=== PATIENT | female | born 1965 | race Caucasian/White ===

== ENCOUNTER 2016-06-18 07:14 | Day surgery (SDC) | payer OTHER ==
[~2016-06-18] VITALS: Ht 167.6 cm; Wt 89.8 kg
[2016-06-18 07:52] VITALS: Ht 167.6 cm; Wt 89.8 kg
[2016-06-18 08:35] VITALS: BP 141/77; PULSE 54; RESP 16
[2016-06-18] MEDS ORDERED: FENTAnyl 50 MCG/ML VIAL ONE (09:34)
[2016-06-18] MEDS ORDERED: MIDAZOLAM 1 MG/ML 2 ML INJ ONE ×2 (09:34)
[2016-06-18 09:56] VITALS: BP 136/71; PULSE 65; RESP 18
--- NOTE | 2016-06-18 11:13 | GILP ---
DATE OF PROCEDURE: 06/18/2016 NAME OF PROCEDURE: Colonoscopy and biopsy. SURGEON: Darron Dave MD PREOPERATIVE DIAGNOSIS: Screening colonoscopy. POSTOPERATIVE DIAGNOSES: 1. Colonoscopy all the way to the cecum. 2. Lipoma sigmoid colon and biopsies were taken for histopathology. 3. Internal hemorrhoids. INDICATION FOR THE PROCEDURE: Ms. Estelle Jordan is a 51-year-old female patient who was schedule d for screening colonoscopy. The procedure and possible complications are well explained to the patient. She understood and cons ented to the procedure. DESCRIPTION OF PROCEDURE: Under the influence of fentanyl and Versed, the colonoscope was carefully introduced in the rectum and under direct vision, it was advanced all the way to the cecum. FINDINGS: The patient had a lipoma in the sigmoid colon and biopsies were taken for histopathology. She was noted to have internal hemorrhoids. She tolerated the procedure very well and there was no complication from the procedure. At the end of the procedure, she was awake with stable vital signs and she was discharged home to the care of h er family. IMPRESSION: 1. Colonoscopy all the way to the cecum. 2. Lipoma in the sigmoid colon and biopsies were taken for histopathology. 3. Internal hemorrhoids. PLAN: Await histopathology report. Next screening colonoscopy in 10 years. Dictated By: DARRON HICKMAN/CHAKA Conf#: [id number] DID#: [id number] CC: DARRON DAVE MD;*EndCC*
== END 2016-06-19 08:11 | disposition home or self-care (01) ==
LOC: GIL 07:14
PROVIDERS: ATTEND Internal Medicine Gastroenterology
DX: Z12.11 Encounter for screening for malignant neoplasm of colon (principal); D17.5 Benign lipomatous neoplasm of intra-abdominal organs; K64.8 Other hemorrhoids
CPT/HCPCS: 45380; 88305; J2250; J3010; Z7610